=== PATIENT | female | born 1985 | race Hispanic/Latino ===

== ENCOUNTER 2021-04-03 15:45 | Outpatient (CLI) | payer MEDICAID ==
[2021-04-04 00:42] LABS: SARS-CoV-2 PCR by NAA Not Detected (NotDetected)
== END 2021-04-03 15:46 | disposition home or self-care (01) ==
LOC: CSHLAB 15:45
PROVIDERS: ATTEND Family Medicine
DX: Z20.822 Contact with and (suspected) exposure to COVID-19 (principal)
CPT/HCPCS: 87635; U0003; U0005

== ENCOUNTER 2021-04-05 05:58 | Inpatient (IN) | payer MEDICAID ==
[2021-04-05] MEDS ORDERED: Oxytocin 10 UNITS/ML VIAL ONE (06:41)
[2021-04-05] MEDS ORDERED: NS w/ Oxytocin 30 units 500 ML ONE (06:41)
[2021-04-05] MEDS ORDERED: Ondansetron PF 4 MG/2 ML Vial IVP PRN ×2 (06:49→08:08)
[2021-04-05] MEDS ORDERED: hydrALAZINE 20 MG/ML VIAL SLOW IVP PRN ×2 (06:49→08:08)
[2021-04-05] MEDS ORDERED: Lidocaine 1% (PF) 30 ML VIAL SC PRN (06:49)
[2021-04-05] MEDS ORDERED: Promethazine HCl 25 MG/ML VIAL IM PRN (06:49)
[2021-04-05] MEDS ORDERED: NS w/ Oxytocin 30 units 500 ML IV SCH ×2 (07:00→10:56)
[2021-04-05] MEDS ORDERED: Lactated Ringer's 1,000 ML IV SCH (07:00)
[2021-04-05 07:13] LABS: Hemoglobin 11.9 g/dL (12.0-15.5); Mean Corpuscular HGB CONC 32.7 g/dL (32.0-36.0); Mean Corpuscular Volume 91.7 fl (81.6-98.3); Mean Platelet Volume 12.6 fl (7.4-10.4); Platelet Count 197 10x3/uL (150-450); RBC Distribution Width 13.5 % (11.5-14.5); Red Blood Cell (RBC) Count 3.97 10x6/uL (3.90-5.03)
[2021-04-05] MEDS ORDERED: Lidocaine 1% (PF) 30 ML VIAL ONE (07:25)
[2021-04-05 07:58] LABS: Syphilis Antibody Nonreactive (Nonreactive); Syphilis Antibody Index 0.03 S/CO (<1.00 Non-Reactive)
[2021-04-05 07:59] LABS: Hep B Surf Ag Non-Reactive S/CO (NonReactive)
[2021-04-05 08:05] VITALS: BMI 27.2
[2021-04-05] MEDS ORDERED: Adacel (T-DAP) 0.5 ML SYRINGE IM ONE (08:08)
[2021-04-05] MEDS ORDERED: Benzocaine-Menthol 82.5 ML CAN TOP PRN (08:08)
[2021-04-05] MEDS ORDERED: Bisacodyl 10 MG SUPP PR PRN (08:08)
[2021-04-05] MEDS ORDERED: Preparation H Ointment 28 GM TUBE PR PRN (08:08)
[2021-04-05] MEDS ORDERED: diphenhydrAMINE 25 MG CAP PO PRN (08:08)
[2021-04-05] MEDS ORDERED: Lanolin Ointment 7 GM TUBE TOP PRN (08:08)
[2021-04-05] MEDS ORDERED: Milk Of Magnesia 30 ML UDCUP PO PRN (08:08)
[2021-04-05 08:16] LABS: HBSAg Index 0.15 S/CO (0-0.99)
[2021-04-05] MEDS: Ferrous Sulfate 325 MG TAB PO SCH ×2 (10:54→14:17)
[2021-04-05] MEDS: Prenatal Vitamin 1 TAB PO SCH (10:54)
[2021-04-05] MEDS: Docusate Calcium (SURFAK) 240 MG CAP PO SCH ×2 (10:54→21:47)
[2021-04-05] MEDS: Ibuprofen 800 MG TAB PO SCH ×2 (13:49→21:47)
[2021-04-06] MEDS: Ibuprofen 800 MG TAB PO SCH (05:46)
[2021-04-06 07:30] LABS: Hemoglobin 11.4 g/dL (12.0-15.5)
[2021-04-06 08:26] VITALS: BP 125/69; TEMP 98.1
[2021-04-06] MEDS: Ferrous Sulfate 325 MG TAB PO SCH (09:28)
[2021-04-06] MEDS: Prenatal Vitamin 1 TAB PO SCH (09:29)
[2021-04-06] MEDS: Docusate Calcium (SURFAK) 240 MG CAP PO SCH (09:30)
== END 2021-04-06 13:10 | disposition home or self-care (01) | DRG 807 ==
LOC: CSHLD/OP 05:58 → CSHLD 07:12 → CSHPP 09:42
PROVIDERS: ADMIT Family Medicine; ATTEND Family Medicine
PROC: 10E0XZZ Delivery of Products of Conception, External Approach (ICD-10-PCS; principal; 2021-04-05)
DX: O99.02 Anemia complicating childbirth (principal); Z37.0 Single live birth; Z3A.40 40 weeks gestation of pregnancy; D64.9 Anemia, unspecified; Z20.822 Contact with and (suspected) exposure to COVID-19; Z86.79 Personal history of other diseases of the circulatory system; Z90.49 Acquired absence of other specified parts of digestive tract; Z91.012 Allergy to eggs
CPT/HCPCS: 36415; 85014; 85018; 85027; 86780; 86850; 86900; 86901; 87340; 99285; J2590